=== PATIENT | male | born 1965 | race Caucasian/White ===

== ENCOUNTER 2018-07-13 14:58 | Inpatient (IN) | payer OTHER ==
[2018-07-13] MEDS ORDERED: HYDROCODONE/APAP (5/325) TAB PO (17:00)
[2018-07-13] MEDS ORDERED: ACETAMINOPHEN 325 MG TAB PO (17:00)
[2018-07-13] MEDS ORDERED: NACL 0.9% 3 ML SYG IV (17:00)
[2018-07-13] MEDS ORDERED: ZOLPIDEM 5 MG TAB PO (17:00)
[2018-07-13] MEDS ORDERED: DOCUSATE SODIUM 100 MG CAP PO (17:00)
[2018-07-13] MEDS ORDERED: morphine LIQ (10 MG/5 ML) CUP PO (17:00)
[2018-07-13] MEDS ORDERED: ONDANSETRON 4 MG INJ IV (17:00)
[2018-07-13] MEDS: TAMSULOSIN (SR) 0.4 MG CAP PO (21:12)
[2018-07-14 05:57] LABS: ADD MAN DIFF? NO
[2018-07-14 06:01] LABS: BASOPHIL # 0.1 10^3/ul (0.0-0.1); BASOPHILS % 0.6 % (0.0-2.0); EOSINOPHILS # 0.2 10^3/ul (0.0-0.5); HEMATOCRIT 42.9 % (42.0-52.0); HEMOGLOBIN 14.7 g/dl (14.0-18.0); LYMPHOCYTES # 1.6 10^3/ul (0.8-2.9); LYMPHOCYTES % 18.7 % (15.0-51.0); MEAN CORPUSCULAR HEMOGLOBIN 31.3 pg (29.0-33.0); MEAN CORPUSCULAR HGB CONC 34.3 g/dl (32.0-37.0); MEAN CORPUSCULAR VOLUME 91.3 fl (82.0-101.0); MEAN PLATELET VOLUME 9.3 fl (7.4-10.4); MONOCYTE # 0.8 10^3/ul (0.3-0.9); MONOCYTES % 9.4 % (0.0-11.0); NEUTROPHIL # 5.9 10^3/ul (1.6-7.5); NEUTROPHILS % 69.1 % (39.0-77.0); PLATELET COUNT 225 10^3/UL (140-415); RED CELL DISTRIBUTION WIDTH 12.6 % (11.5-14.5)
[2018-07-14 06:01] LABS: WHITE BLOOD COUNT 8.5 10^3/ul (4.8-10.8)
[2018-07-14 06:10] LABS: HEMOGLOBIN A1C 5.3 % (0-5.9)
[2018-07-14 06:28] LABS: ANION GAP 14 (5-13); BLOOD UREA NITROGEN 10 mg/dl (7-20); CALCIUM 9.5 mg/dl (8.4-10.2); CARBON DIOXIDE 26 mmol/L (21-31); CHLORIDE 102 mmol/L (97-110); CREATININE 0.64 mg/dl (0.61-1.24); Estimated GFR > 60 mL/min (>60); GLUCOSE 102 mg/dl (70-220); MAGNESIUM 1.9 mg/dl (1.7-2.5); PHOSPHORUS 3.8 mg/dl (2.5-4.9); POTASSIUM 3.7 mmol/L (3.5-5.1); SODIUM 142 mmol/L (135-144)
[2018-07-14] MEDS: TAMSULOSIN (SR) 0.4 MG CAP PO (08:50)
== END 2018-07-14 16:50 | disposition home or self-care (01) | DRG 390 ==
LOC: 2NE 14:58
DX: K56.609 Unspecified intestinal obstruction, unspecified as to partial versus complete obstruction (principal); F10.10 Alcohol abuse, uncomplicated; Z85.048 Personal history of other malignant neoplasm of rectum, rectosigmoid junction, and anus; Z92.21 Personal history of antineoplastic chemotherapy
CPT/HCPCS: 80048; 83036; 83735; 84100; 85025; 87081